=== PATIENT | male | born 1950 | race Caucasian/White ===

== ENCOUNTER 2018-03-29 05:33 | Inpatient (IN) | payer OTHER, MEDICARE ==
[2018-03-29] MEDS: MAGNESIUM SULFATE 2 GM/50 ML 50 ML IVPB (06:02)
[2018-03-29] MEDS: DEXAMETHASONE 10 MG/ML 1 ML INJ IV (06:02)
[2018-03-29 06:11] LABS: ADD MAN DIFF? NO
[2018-03-29] MEDS: IPRATROPIUM (NEB) 0.5 MG/2.5 ML AMP INH ×3 (06:12→10:16)
[2018-03-29] MEDS: ALBUTEROL 0.5% (NEB) 2.5 MG/0.5 ML AMP INH ×3 (06:12→10:17)
[2018-03-29 06:13] LABS: BASOPHIL # 0.1 10^3/ul (0.0-0.1); BASOPHILS % 0.7 % (0.0-2.0); EOSINOPHILS # 0.1 10^3/ul (0.0-0.5); EOSINOPHILS % 0.8 % (0.0-7.0); HEMATOCRIT 50.1 % (42.0-52.0); HEMOGLOBIN 17.9 g/dl (14.0-18.0); LYMPHOCYTES # 1.8 10^3/ul (0.8-2.9); LYMPHOCYTES % 17.6 % (15.0-51.0); MEAN CORPUSCULAR HEMOGLOBIN 33.8 pg (29.0-33.0); MEAN CORPUSCULAR HGB CONC 35.7 g/dl (32.0-37.0); MEAN CORPUSCULAR VOLUME 94.5 fl (82.0-101.0); MEAN PLATELET VOLUME 8.9 fl (7.4-10.4); MONOCYTE # 1.2 10^3/ul (0.3-0.9); MONOCYTES % 11.4 % (0.0-11.0); NEUTROPHIL # 7.2 10^3/ul (1.6-7.5); NEUTROPHILS % 68.8 % (39.0-77.0); PLATELET COUNT 228 10^3/UL (140-415); RED CELL DISTRIBUTION WIDTH 13.6 % (11.5-14.5)
[2018-03-29 06:13] LABS: WHITE BLOOD COUNT 10.4 10^3/ul (4.8-10.8)
[2018-03-29 06:26] LABS: Allen Test ACCEPTAB; Arterial Base Excess 1.4 mmol/L (-3.0-3); Arterial Blood Gas Oxygen Sat 98.7 mmHG (95.0-98.0); Arterial Fraction of Oxyhgb 93.5 % (93.0-99.0); Arterial HCO3 26.5 mmol/L (22.0-26.0); Arterial MetHb 0.3 % (0.0-1.5); Arterial Total Hemglobin 18.5 g/dl (12.0-18.0); MODE ROOM AIR; Site Left Radial
[2018-03-29 06:40] LABS: ANION GAP 14 (8-16); BLOOD UREA NITROGEN 11 mg/dl (7-20); CALCIUM 9.6 mg/dl (8.4-10.2); CARBON DIOXIDE 27 mmol/L (21-31); CHLORIDE 104 mmol/L (97-110); CREATININE 0.68 mg/dl (0.61-1.24); GLUCOSE 115 mg/dl (70-220); POTASSIUM 4.3 mmol/L (3.5-5.1); SODIUM 141 mmol/L (135-144)
[2018-03-29] MEDS: LORAZEPAM 2 MG INJ IV (06:49)
[2018-03-29 06:54] LABS: TROPONIN-I < 0.012 ng/ml (0.000-0.120)
[2018-03-29] MEDS: NICOTINE (21 MG/24 HR) PATCH TRANSDERM (09:38)
[2018-03-29] MEDS: ALBUTEROL 0.5% (NEB) 2.5 MG/0.5 ML AMP NEB (12:31)
[2018-03-29] MEDS: IPRATROPIUM (NEB) 0.5 MG/2.5 ML AMP NEB (12:31)
[2018-03-29] MEDS ORDERED: ONDANSETRON 4 MG INJ IV ×2 (13:30→14:30)
[2018-03-29] MEDS ORDERED: ACETAMINOPHEN 325 MG TAB PO ×2 (13:30→14:30)
[2018-03-29] MEDS ORDERED: NACL 0.9% 3 ML SYG IV (14:30)
[2018-03-29] MEDS ORDERED: DOCUSATE SODIUM 100 MG CAP PO (14:30)
[2018-03-29] MEDS ORDERED: NA PHOSPHATE/BIPHOS 133 ML ENEMA PR (14:30)
[2018-03-29] MEDS ORDERED: hydrALAzine 20 MG INJ IV (14:30)
[2018-03-29] MEDS ORDERED: MAGNESIUM HYDROXIDE 30ML CUP PO (14:30)
[2018-03-29] MEDS ORDERED: morphine 2 MG INJ IV (14:30)
[2018-03-29] MEDS ORDERED: LORAZEPAM 2 MG INJ IV (14:30)
[2018-03-29] MEDS ORDERED: NITROGLYCERIN (SL) 0.4 MG TAB SL (14:30)
[2018-03-29 14:52] LABS: FREE T4 (FREE THYROXINE) 1.24 ng/dl (0.78-2.44)
[2018-03-29] MEDS: METHYLPREDNISOLONE 125 MG INJ IV ×2 (16:29→20:32)
[2018-03-29] MEDS: SOD CHLORIDE 0.45% 1,000 ML IV (16:30)
[2018-03-29] MEDS: ALBUTEROL/IPRATROPIUM (NEB) 3 ML AMP HHN ×3 (17:00→20:54)
[2018-03-29] MEDS: POTASSIUM CHLORIDE (SR) 10 MEQ TAB PO (20:32)
[2018-03-29] MEDS: HEPARIN 5,000 UNIT/0.5 ML VIAL SC (20:35)
[2018-03-29] MEDS ORDERED: ALBUTEROL/IPRATROPIUM (NEB) 3 ML AMP HHN (23:00)
[2018-03-30] MEDS: METHYLPREDNISOLONE 125 MG INJ IV ×4 (00:19→17:42)
[2018-03-30] MEDS: ALBUTEROL/IPRATROPIUM (NEB) 3 ML AMP HHN ×6 (00:48→20:03)
[2018-03-30] MEDS: SOD CHLORIDE 0.45% 1,000 ML IV ×2 (03:36→05:02)
[2018-03-30 05:59] LABS: ADD MAN DIFF? NO
[2018-03-30 06:03] LABS: WHITE BLOOD COUNT 16.5 10^3/ul (4.8-10.8)
[2018-03-30 06:03] LABS: BASOPHILS % 0.1 % (0.0-2.0); HEMOGLOBIN 16.1 g/dl (14.0-18.0); LYMPHOCYTES # 0.7 10^3/ul (0.8-2.9); LYMPHOCYTES % 4.3 % (15.0-51.0); MEAN CORPUSCULAR HEMOGLOBIN 32.9 pg (29.0-33.0); MEAN CORPUSCULAR VOLUME 94.1 fl (82.0-101.0); MONOCYTE # 0.4 10^3/ul (0.3-0.9); MONOCYTES % 2.2 % (0.0-11.0); NEUTROPHIL # 15.3 10^3/ul (1.6-7.5); NEUTROPHILS % 92.7 % (39.0-77.0); PLATELET COUNT 213 10^3/UL (140-415); RED BLOOD COUNT 4.89 10^6/ul (4.70-6.10); RED CELL DISTRIBUTION WIDTH 13.1 % (11.5-14.5)
[2018-03-30] MEDS: PANTOPRAZOLE (EC) 40 MG TAB PO (06:14)
[2018-03-30 06:41] LABS: CHOLESTEROL 171 mg/dl (100-200)
[2018-03-30 06:41] LABS: CHOL/HDL RATIO 2.5 RATIO; HDL CHOLESTEROL 68 mg/dl (30-78); LDL CHOLESTEROL,CALCULATED 91 mg/dl; TRIGLYCERIDES 60 mg/dl (0-149)
[2018-03-30 06:46] LABS: ANION GAP 10 (8-16); BLOOD UREA NITROGEN 21 mg/dl (7-20); CARBON DIOXIDE 26 mmol/L (21-31); CHLORIDE 104 mmol/L (97-110); CREATININE 0.64 mg/dl (0.61-1.24); GLUCOSE 190 mg/dl (70-220); PHOSPHORUS 3.5 mg/dl (2.5-4.9); POTASSIUM 4.3 mmol/L (3.5-5.1); SODIUM 136 mmol/L (135-144)
[2018-03-30 07:26] LABS: HEMOGLOBIN A1C 6.3 % (0-5.9)
[2018-03-30] MEDS: LEVOFLOXACIN 750MG/D5W (PMX) 150 ML IVPB (08:48)
[2018-03-30] MEDS: BUMETANIDE 1 MG TAB PO (08:49)
[2018-03-30] MEDS: POTASSIUM CHLORIDE (SR) 10 MEQ TAB PO ×2 (08:49→21:44)
[2018-03-30] MEDS: NICOTINE (21 MG/24 HR) PATCH TRANSDERM (08:49)
[2018-03-30] MEDS: AMLODIPINE 10 MG TAB PO (08:49)
[2018-03-30] MEDS: HEPARIN 5,000 UNIT/0.5 ML VIAL SC ×2 (08:58→21:54)
[2018-03-30] MEDS ORDERED: morphine LIQ (10 MG/5 ML) CUP PO (21:30)
[2018-03-31] MEDS: METHYLPREDNISOLONE 125 MG INJ IV ×4 (00:03→17:27)
[2018-03-31] MEDS: ALBUTEROL/IPRATROPIUM (NEB) 3 ML AMP HHN ×6 (00:29→20:36)
[2018-03-31] MEDS: HYDROCODONE/APAP (5/325) TAB PO (05:14)
[2018-03-31] MEDS: PANTOPRAZOLE (EC) 40 MG TAB PO (05:15)
[2018-03-31 07:13] LABS: ADD MAN DIFF? NO
[2018-03-31 07:15] LABS: WHITE BLOOD COUNT 17.9 10^3/ul (4.8-10.8)
[2018-03-31 07:15] LABS: ABNORMAL IP MESSAGE 1; BASOPHILS % 0.1 % (0.0-2.0); HEMATOCRIT 45.5 % (42.0-52.0); HEMOGLOBIN 15.7 g/dl (14.0-18.0); LYMPHOCYTES # 0.6 10^3/ul (0.8-2.9); LYMPHOCYTES % 3.2 % (15.0-51.0); MEAN CORPUSCULAR HEMOGLOBIN 32.5 pg (29.0-33.0); MEAN CORPUSCULAR HGB CONC 34.5 g/dl (32.0-37.0); MEAN CORPUSCULAR VOLUME 94.2 fl (82.0-101.0); MEAN PLATELET VOLUME 9.3 fl (7.4-10.4); MONOCYTE # 0.6 10^3/ul (0.3-0.9); MONOCYTES % 3.1 % (0.0-11.0); NEUTROPHIL # 16.7 10^3/ul (1.6-7.5); PLATELET COUNT 201 10^3/UL (140-415); POSITIVE DIFF @See below; RED BLOOD COUNT 4.83 10^6/ul (4.70-6.10); RED CELL DISTRIBUTION WIDTH 13.2 % (11.5-14.5)
[2018-03-31 07:55] LABS: ANION GAP 14 (8-16); BLOOD UREA NITROGEN 26 mg/dl (7-20); CALCIUM 8.8 mg/dl (8.4-10.2); CARBON DIOXIDE 27 mmol/L (21-31); CHLORIDE 99 mmol/L (97-110); CREATININE 0.63 mg/dl (0.61-1.24); GLUCOSE 179 mg/dl (70-220); POTASSIUM 3.9 mmol/L (3.5-5.1); SODIUM 136 mmol/L (135-144)
[2018-03-31] MEDS: AMLODIPINE 10 MG TAB PO (08:45)
[2018-03-31] MEDS: LEVOFLOXACIN 750MG/D5W (PMX) 150 ML IVPB (08:45)
[2018-03-31] MEDS: BUMETANIDE 1 MG TAB PO (08:45)
[2018-03-31] MEDS: POTASSIUM CHLORIDE (SR) 10 MEQ TAB PO ×2 (08:45→21:54)
[2018-03-31] MEDS: NICOTINE (21 MG/24 HR) PATCH TRANSDERM (08:47)
[2018-03-31] MEDS: HEPARIN 5,000 UNIT/0.5 ML VIAL SC ×2 (08:48→22:01)
[2018-04-01] MEDS: METHYLPREDNISOLONE 125 MG INJ IV ×3 (01:12→12:07)
[2018-04-01] MEDS: HYDROCODONE/APAP (5/325) TAB PO (01:16)
[2018-04-01] MEDS: ALBUTEROL/IPRATROPIUM (NEB) 3 ML AMP HHN ×4 (01:34→13:14)
[2018-04-01] MEDS: PANTOPRAZOLE (EC) 40 MG TAB PO (05:37)
[2018-04-01 06:10] LABS: ADD MAN DIFF? NO
[2018-04-01 06:30] LABS: ABNORMAL IP MESSAGE 1; BASOPHILS % 0.1 % (0.0-2.0); HEMATOCRIT 45.4 % (42.0-52.0); LYMPHOCYTES # 0.5 10^3/ul (0.8-2.9); LYMPHOCYTES % 3.2 % (15.0-51.0); MEAN CORPUSCULAR HEMOGLOBIN 33.2 pg (29.0-33.0); MEAN CORPUSCULAR HGB CONC 35.2 g/dl (32.0-37.0); MEAN CORPUSCULAR VOLUME 94.2 fl (82.0-101.0); MEAN PLATELET VOLUME 9.6 fl (7.4-10.4); MONOCYTE # 0.6 10^3/ul (0.3-0.9); NEUTROPHIL # 13.5 10^3/ul (1.6-7.5); NEUTROPHILS % 92.1 % (39.0-77.0); PLATELET COUNT 208 10^3/UL (140-415); POSITIVE DIFF @See below; RED BLOOD COUNT 4.82 10^6/ul (4.70-6.10); RED CELL DISTRIBUTION WIDTH 12.9 % (11.5-14.5)
[2018-04-01 06:30] LABS: WHITE BLOOD COUNT 14.7 10^3/ul (4.8-10.8)
[2018-04-01 07:28] LABS: ANION GAP 11 (8-16); BLOOD UREA NITROGEN 27 mg/dl (7-20); CALCIUM 9.1 mg/dl (8.4-10.2); CARBON DIOXIDE 27 mmol/L (21-31); CHLORIDE 104 mmol/L (97-110); CREATININE 0.65 mg/dl (0.61-1.24); GLUCOSE 212 mg/dl (70-220); POTASSIUM 3.8 mmol/L (3.5-5.1); SODIUM 138 mmol/L (135-144)
[2018-04-01] MEDS: AMLODIPINE 10 MG TAB PO (08:29)
[2018-04-01] MEDS: LEVOFLOXACIN 750MG/D5W (PMX) 150 ML IVPB (08:29)
[2018-04-01] MEDS: BUMETANIDE 1 MG TAB PO (08:29)
[2018-04-01] MEDS: POTASSIUM CHLORIDE (SR) 10 MEQ TAB PO (08:30)
[2018-04-01] MEDS: NICOTINE (21 MG/24 HR) PATCH TRANSDERM (08:31)
[2018-04-01] MEDS: HEPARIN 5,000 UNIT/0.5 ML VIAL SC (08:32)
== END 2018-04-01 16:06 | disposition home or self-care (01) | DRG 192 ==
LOC: E/R 05:33 → MS4 13:28
DX: J44.1 Chronic obstructive pulmonary disease with (acute) exacerbation (principal); I10 Essential (primary) hypertension; F17.200 Nicotine dependence, unspecified, uncomplicated
CPT/HCPCS: 36600; 71045; 80048; 80061; 82803; 83036; 83735; 84100; 84439; 84443; 84484; 85025; 93005; 93306; 94640; 94644; 94645; 96374; 96375; 97116; 97161; 99285-25